=== PATIENT | female | born 1960 | race Two or more races ===

== ENCOUNTER → 2017-11-24 | Outpatient (CLI) | payer OTHER ==
[~2017-11-24] MED LIST: ANAPROX275 MG; DOLOGESIC CAPSU1 CAP PO; HYZAAR 50-12.1 UDTAB PO; ORAPRED ODT10 MG/TAB; ORPH100T PO; PULMICORT1 MG/2 ML; SKELAXIN800 MG; XOPENEX0.63 MG/3
== END | disposition home or self-care (01) ==
LOC: RAD 501 08:36
DX: J45.31 Mild persistent asthma with (acute) exacerbation (principal); J11.1 Influenza due to unidentified influenza virus with other respiratory manifestations

== ENCOUNTER 2019-12-23 11:22 | Emergency (ER) | payer OTHER ==
[~2019-12-23] VITALS: Ht 152.4 cm; Wt 54.4 kg
[2019-12-23] MEDS ORDERED: SINGULAIR 10MG10 MG (11:32)
[2019-12-23] MEDS ORDERED: ZITHROMAX500 MG PO (14:30)
[2019-12-23] MEDS ORDERED: TUSNEL LIQUID178 ML PO (14:30)
[2019-12-23] MEDS ORDERED: MEDROLPACK PO (14:30)
[2019-12-23] MEDS ORDERED: IPRAT-ALBUT 0.5-3 ML IH (14:32)
== END 2019-12-23 15:45 | disposition home or self-care (01) ==
LOC: ER 11:22
DX: J45.909 Unspecified asthma, uncomplicated (principal)

== ENCOUNTER → 2021-09-02 | Emergency (ER) | payer OTHER ==
[~2021-09-02] VITALS: Ht 152.4 cm; Wt 56.7 kg
[~2021-09-02] MED LIST changes: +IPRAT-ALBUT 0.5-3 ML IH; +MEDROLPACK PO; +SINGULAIR 10MG10 MG; +TUSNEL LIQUID178 ML PO; +XOPENEX0.63 MG/3 IH; +ZITHROMAX500 MG PO
== END | disposition home or self-care (01) ==
LOC: ER 17:35
DX: J45.901 Unspecified asthma with (acute) exacerbation (principal); Z03.818 Encounter for observation for suspected exposure to other biological agents ruled out; I10 Essential (primary) hypertension

== ENCOUNTER 2023-02-10 12:20 | Outpatient (CLI) | payer OTHER | END 2023-02-10 14:25 | disposition home or self-care (01) | LOC: RAD 12:20 | DX: M99.02 Segmental and somatic dysfunction of thoracic region (principal); S23.3XXA Sprain of ligaments of thoracic spine, initial encounter ==

== ENCOUNTER 2023-06-26 21:53 | Emergency (ER) | payer OTHER ==
[~2023-06-26] VITALS: Ht 152.4 cm; Wt 45.4 kg
[2023-06-26] MEDS ORDERED: MEDROLPACK PO (23:35)
[2023-06-26] MEDS ORDERED: BENADRYL25 MG PO (23:35)
== END 2023-06-26 23:42 | disposition home or self-care (01) ==
LOC: ER
DX: R10.9 Unspecified abdominal pain (principal); T78.49XA Other allergy, initial encounter; R11.10 Vomiting, unspecified; Z91.013 Allergy to seafood